=== PATIENT | female | born 1950 | race Two or more races ===

== ENCOUNTER 2019-09-23 14:24 | Emergency (ER) | payer MEDICARE ==
[~2019-09-23] VITALS: Ht 144.8 cm; Wt 64.4 kg
--- OUTSIDE RECORDS SUMMARY | 2019-09-23 14:26 | XMS REPORT | Summary of Care ---
Author Author [facility] Organization [facility] Address Unknown Phone Unavailable Care Team Providers Care Ms Sql Dba Name Role Phone Valentin Mccoy MD PCP Reason for Referral * Radiology Services (Routine) Referred By Contact Referred To Contact Status Reason Specialty Diagnoses / Procedures Norma Cox RN [facility] Mammo Imaging [address] [facility] [address] [place] [address] Pending Radiology Diagnoses Visit for screening mammogram P rocedures MAMMO SCREENING BILATERAL Reason for Visit * Reason Comments Annual Wellness Visit Encounter Details Care Team Description Date Type Department Norma Cox RN Annual Wellness Visit 02/24/2019 Office Visit [facility] General Internal Medicine [address] 8[address]; [address] [place] [address] Allergies No Known Allergiesdocumented as of this encounter (statuses as of 02/24/2019) Medications End Date Status Medication Sig Dispensed Refills Start Date Active CALCIUM OR Take 250 mg 0 by mouth. Active atorvastatin (LIPITOR) 20 Take 1 Tab by 90 Tab 3 MG tabletIndications: mouth at 7 Mixed hyperlipidemia bedtime. Active omeprazole (PRILOSEC) 20 TAKE ONE 90 Cap 3 MG capsuleIndications: CAPSULE BY 7 Gastroesophageal reflux MOUTH EVERY disease without DAY esophagitis 02/24/2019 Discontinued meloxicam (MOBIC) 15 MG Take 1 Tab by 30 Tab 10 tabletIndications: mouth daily 6 Bilateral low back pain as needed for without sciatica Pain. 02/24/2019 Discontinued ciprofloxacin (CIPRO) 500 Take 1 Tab by 20 Tab 0 MG tabletIndications: mouth two 6 Travel advice encounter times daily. 02/24/2019 Discontinued ibandronate (BONIVA) 150 TAKE 1 TABLET 3 Tab 2 MG tablet BY MOUTH 7 EVERY MONTH 02/24/2019 Discontinued Na Sulfate-K Sulfate-Mg Take as 2 Bottle 1 Sulf (SUPREP BOWEL PREP directed 7 KIT) 17.5-3.13-1.6 GM/180ML SOLNIndications: Preventative health care, Screen for colon cancer documented as of this encounter (statuses as of 02/24/2019) Active Problems Problem Noted Date Incipient cataract 10/23/2013 Osteoporosis 05/07/2012 Other and unspecified hyperlipidemia 12/12/2010 GERD (gastroesophageal reflux disease) 12/12/2010 documented as of this encounter (statuses as of 02/24/2019) Immunizations Name Administration Dates Next Due Hepatitis B 08/30/2015, 04/12/2015 Influenza (Preservative 04/10/2013 Free) Influenza Intradermal 05/15/2016 Influenza Quad-PF 04/12/2015 Pneumococcal 05/22/2013 Polysaccharide Tdap 11/02/2014 Zoster Live 04/10/2013 documented as of this encounter Social History Date Tobacco Use Types Packs/Day Years Used Never Smoker Smokeless Tobacco: Never Used Drinks/Week oz/Week Comments Alcohol Use occasionally Yes Alcohol Habits Answer Date Recorded How often do you have a drink containing alcohol? Monthly or less 02/24/2019 How many drinks containing alcohol do you have on 1 or 2 02/24/2019 a typical day when you are drinking? How often do you have six or more drinks on one Never 02/24/2019 occasion? Physical Activity Answer Date Recorded On average, how many days per week do you engage 7 days 02/24/2019 in moderate to strenuous exercise (like walking fast, running, jogging, dancing, swimming, biking, or other activities that cause a light or heavy sweat)? On average, how many minutes do you engage in 40 min 02/24/2019 exercise at this level? Sex Assigned at Date Recorded Not on file Industry Job Start Date Occupation Not on file Not on file Not on file Travel End Travel History Travel Start No recent travel history available. documented as of this encounter Last Filed Vital Signs Reading Time Taken Comments Vital Sign 130/76 02/24/2019 9:49 AM CDT Blood Pressure 77 02/24/2019 9:49 AM CDT Pulse 36.7 C (98.1 F) 02/24/2019 9:49 AM CDT Temperature 16 02/24/2019 9:49 AM CDT Respiratory Rate - - Oxygen Saturation - - Inhaled Oxygen Concentration 67.6 kg (149 lb) 02/24/2019 9:49 AM CDT Weight 142.2 cm (4' 8") 02/24/2019 9:49 AM CDT Height 33.41 02/24/2019 9:49 AM CDT Body Mass Index documented in this encounter Patient Instructions * Patient Instructions* Norma Cox, LIZA - 02/24/2019 9:16 AM CDT Medicare Annual Wellness Summary and Schedule of Screening Diet, Nutrition and Weight The Body Mass Index is a ratio between your weight and height. Body mass index is 33.41 kg/m. BMI Ranges 23 to 29.99 Normal Over 30 Obese We will continue to help you get to or maintain a healthy weight by following a balanced diet. In general, we recommend the DASH diet and we can refer you our d ietician for guidance and funeral counselor on weight loss with a good diet exercise that is appropriate for you. Health Maintenance and Screening Test schedule Health Maintenance Topic Date Due HEPATITIS C SCREENING 10/17/1969 PREVNAR >=65 (PCV13) 10/17/2016 PNEUMOVAX >=65 (PPSV23) 10/17/2016 MAMMOGRAM ANNUAL 06/20/2018 FLU VACCINE > 6 MONTHS 02/12/2019 BMI FOLLOW UP PLAN 02/25/2020 MEDICARE AWV 02/25/2020 FALL SCREEN 02/25/2020 COLON CANCER SCREENING: COLONOSCOPY 05/26/2022 TETANUS SHOT (ADULT) 11/02/2024 OSTEOPOROSIS SCREENING Completed Colonoscopies are done until you're 75 years old; your next colonoscopy due date is shown above if applicable. Mammogram can be done until you're 75 years old every one to two years; your nex t mammogram due date is shown above if applicable. Please call the [facility] to make your appointment. [facility]; [address] [place] [address], [address]; [place] [address] Bone Density tests can be done every 1-2 years depending on the results of your previous test. Bone density orders have been created and entered into the system. Walk-ins are accepted for bone density testings at [facility] on the or of [facility] [address]; Their hours are from 7am-5pm. If you do not have a medical condition that requires regular cholesterol monitor ing, cholesterol screening should be done at least every 5 years. Your next cholesterol labs is due per recommendations Results for orders placed or performed in visit on 05/28/17 LIPID PANEL Result Value Ref Range CHOLESTEROL 177 <200 MG/DL TRIGLYCERIDES 239 (H) <150 MG/DL HDL CHOLESTEROL 44 >39 MG/DL LDL CHOLESTEROL CALCULATED 85 <100 MG/DL LDL/HDL RATIO, SERUM 1.94 <3.22 RATIO If you do not have a medical condition that requires regular blood sugars monito ring, blood sugars screening should be done at least every 3 years. Your next blood sugars labs is due per MD recommendations Lab Results Component Value Date GLUCOSE 89 05/28/2017 Your Body mass index is 33.41 kg/m. Body mass index (BMI) can help you see if your weight is raising your risk for h ealth problems. It uses a formula to compare how much you weigh with how tall yo u are. A BMI between 18.5 and 24.9 is considered healthy. A BMI between 25 and 2 9.9 is considered overweight. A BMI of 30 or higher is considered obese. If your BMI is in the normal range, it means that you have a lower risk for weig ht-related health problems. If your BMI is in the overweight or obese range, you may be at increased risk for weight-related health problems, such as high blood pressure, heart disease, stroke, arthritis or joint pain, and diabetes. BMI is just one measure of your risk for weight-related health problems. You may be at higher risk for health problems if you are not active, you eat an unhealt hy diet, or you drink too much alcohol or use tobacco products. Follow-up care is a butcher part of your treatment and safety. Be sure to make and g o to all appointments, and call your doctor if you are having problems. It's als o a good idea to know your test results and keep a list of the medicines you kev e. How can you care for yourself at home? Practice healthy eating habits. This includes eating plenty of fruits, vegeta bles, whole grains, lean protein, and low-fat dairy. Get at least 30 minutes of exercise 5 days a week or more. Brisk walking is a good choice. You also may want to do other activities, such as running, swimmin g, cycling, or playing tennis or team sports. Do not smoke. Smoking can increase your risk for health problems. If you need help quitting, talk to your doctor about stop-smoking programs and medicines. T hese can increase your chances of quitting for good. Limit alcohol Where can you learn more? Go to www.ideaForge.[facility] southern arizonaCretia's Creations Go to the Search tab with the magnifying glass on the right side of Trendrating home page. Enter S176 in the search box to learn more about "Body Mass Index: Care Instruct ions." Adult Immunization schedule Influenza Vaccine: recommended every year Zostavax Shingles vaccines: recommended once after the age of 60 *OR* Shingrix Shingles vaccine: recommended after the age of 50 (two injections given at least 2 months apart) Pneumovax and Prevnar: recommended once after the age of 65 and are given one ye ar apart. Immunization History Administered Date(s) Administered Hepatitis B 04/12/2015, 08/30/2015 Influenza (Preservative Free) 04/10/2013 Influenza Intradermal 05/15/2016 Influenza Quad-PF 04/12/2015 Pneumococcal Polysaccharide 05/22/2013 Tdap 11/02/2014 Zoster Live 04/10/2013 Patient Safety You received a patient safety brochure with your questionnaire and if you need a new copy, we will provide it for you. We aim to help prevent falls in our patie nts; please return to [facility] Medicine clinic if you experience a fall any time before your next Medicare Annual Wellness Visit. [facility] Services website for simple Advance Directive forms ("Jennifer ing Will") and Medical Power of Welder [employer] https://hhs.[place].gov/laws-regulations/forms/advance-directives Direct link to the living will form: https://[facility].[place].gov/sites/default/files//documents/laws-regulations/forms/Denise ngWialexis/LivingWill.pdf Direct link to the Medical Power of Welder Manufacture form: https://[facility].[place].gov/sites/default/files//documents/laws-regulations/forms/MPOA /MPOA.pdf The above links are confirmed as of 3/12/18 Depression, Confidence with Self-management [facility]:[phone] http://www.cdc.gov/aging/mentalhealth/depression.htm Pain [facility] [phone] Physical Activity Living Health Guide Xc7ceuy www.daysi.nih.gov/ym9Sfpk Falls and Gait Physical Therapy: Various locations http://www.cdc. gov/HomeandRecreationalSafety/Falls/adultfalls.html Smoking www.ConX[employer].net/[place] https://www.cdc.gov/tobacco/quit_smoking/how_to_quit/index.htm Alcohol [facility]: [phone] http://www.cdc.gov/alcohol/ Home Safety www.[facility].gov/health/aging Motor Vehicle Safety http://www.cdc.gov/Motorvehiclesafety/Older_Adult_Drivers/i ndex.html Cognition [facility] [phone] http://www.cdc.gov/aging/aginginfo/alzheimers.htm Hearing [facility] [phone] https://www.nidcd.nih.gov/health/rexyxeo-nufh-hdiew-adults Vision [facility] [phone] http://www.[facility].gov/features/healthyvision/index.html BMI [facility] [phone] https://www.daysi.nih.gov/health/publication/wmhtkao-hoihgp-bnxlw-50https://www. daysi.nih.gov/health/publication/rohwc-hgdb-mfzgr/ Have a healthy year! Norma Cox RN Learning About Dietary Guidelines What are the Dietary Guidelines for Americans? Dietary Guidelines for Americans provide tips for eating well and staying health y. This helps reduce the risk for long-term (chronic) diseases. These adult guidelines from the [place] government recommend that you: ? Eat lots of fruits, vegetables, whole grains, and low-fat or nonfat dairy prod ucts. ? Try to balance your eating with your activity. This helps you stay at a health y weight. ? Drink alcohol in moderation, if at all. ? Limit foods high in salt, saturated fat, trans fat, and added sugar. What is MyPlate? MyPlate is the U.S. government's food guide. It can help you make your own well- balanced eating plan. A balanced eating plan means that you eat enough, but not too much, and that your food gives you the nutrients you need to stay healthy. MyPlate focuses on eating plenty of whole grains, fruits, and vegetables, and on limiting fat and sugar. It is available online at www.ChooseMyPlate.gov. How can you get started? MyPlate suggests that most adults eat certain amounts from the different food gr oups: Grains Eat 5 to 8 ounces of grains each day. Half of those should be whole grains. Jasmin se whole-grain breads, cold and cooked cereals and grains, pasta (without creamy sauces), hard rolls, or low-fat or fat-free crackers. Vegetables Eat 2 to 3 cups of vegetables every day. They contain little if any fat. And the y have lots of nutrients that help protect against heart disease. Fruits Eat 1 to 2 cups of fruits every day. Fruits contain very little fat but lots o f nutrients. Protein foods Most adults need 5 to 6 ounces each day. Choose fish and lean poultry more oft en. Eat red meat and fried meats less often. Dried beans, tofu, and nuts are als o good sources of protein. Dairy Most adults need 3 cups of milk and milk products a day. Choose low-fat or fat-f ree products from this food group. If you have problems digesting milk, try eati ng cheese or yogurt instead. Limit fats and oils, including those used in cooking. When you do use fats, jasmin se oils that are liquid at room temperature (unsaturated fats). These include ca broderick oil and olive oil. Avoid foods with trans fats, such as many fried foods, c ookies, and snack foods. Where can you learn more? Go to ideaForge.Performance [employer]icator and Enter D676 in the search box to learn more ab out "Learning About Dietary Guidelines." A visit with a licensed registered dietitian can provide a wealth of helpful inf ormation. Ask your doctor to place a referral or call [phone] for more inf ormation. 0429-0919 [employer]. Care instructions adapted under license b y [facility]. This care instruction is for use with your license d healthcare professional. If you have questions about a medical condition or th is instruction, always ask your healthcare professional. [employer] d disclaims any warranty or liability for your use of this information. Content Version: 11.0.975102; Current as of: August 19, 2015 Your There is no height or weight on file to calculate BMI. Body mass index (BMI) can help you see if your weight is raising your risk for h ealth problems. It uses a formula to compare how much you weigh with how tall yo u are. A BMI between 18.5 and 24.9 is considered healthy. A BMI between 25 and 2 9.9 is considered overweight. A BMI of 30 or higher is considered obese. If your BMI is in the normal range, it means that you have a lower risk for weig ht-related health problems. If your BMI is in the overweight or obese range, you may be at increased risk for weight-related health problems, such as high blood pressure, heart disease, stroke, arthritis or joint pain, and diabetes. BMI is just one measure of your risk for weight-related health problems. You may be at higher risk for health problems if you are not active, you eat an unhealt hy diet, or you drink too much alcohol or use tobacco products. Follow-up care is a butcher part of your treatment and safety. Be sure to make and g o to all appointments, and call your doctor if you are having problems. It's als o a good idea to know your test results and keep a list of the medicines you kev e. How can you care for yourself at home? Practice healthy eating habits. This includes eating plenty of fruits, vegeta bles, whole grains, lean protein, and low-fat dairy. Get at least 30 minutes of exercise 5 days a week or more. Brisk walking is a good choice. You also may want to do other activities, such as running, swimmin g, cycling, or playing tennis or team sports. Do not smoke. Smoking can increase your risk for health problems. If you need help quitting, talk to your doctor about stop-smoking programs and medicines. T hese can increase your chances of quitting for good. Limit alcohol Where can you learn more? Go to www.ideaForge.[facility] arizonaMileIQ.Zong Go to the Search tab with the magnifying glass on the right side of Trendrating home page. Enter S176 in the search box to learn more about "Body Mass Index: Care Instruct ions." [facility] Hepatitis C Virus Tests: About These Tests What are they? Hepatitis C virus tests are blood tests that check for substances in the blood t hat show whether you have hepatitis C now or had it in the past. The tests can a lso tell you what type of hepatitis C you have and how severe the disease is. Why are these tests done? You may need these tests if: You have symptoms of hepatitis. You may have been exposed to the virus. You are more likely to have been expo sed to the virus if you inject drugs or are exposed to body fluids (such as if y won are a health care worker). You have had other tests that show you have liver problems. You were born between 1945 and 1965. People in this age group are more likely to have hepatitis C and not know it. You have HIV infection. The tests also are done to help your doctor decide about your treatment and see how well it works. How can you prepare for these tests? You do not need to do anything before you have these tests. What happens during these tests? A health professional takes a sample of your blood. What else should you know about these tests? The tests can tell your doctor what type of hepatitis C you have and how karyn re it is. This can help your doctor determine treatment and see how effective it is. If you have the tests soon after you were infected with hepatitis C, they may show that you do not have the disease even when you have it. This is because the substances that show you have hepatitis C can take weeks or months to develop, so they may not be in your blood yet. Your doctor may want you to be tested aga in. If the tests show you have long-term hepatitis C, you need to take steps to p revent spreading the disease. What happens after these tests? You will probably be able to go home right away. You can go back to your usual activities right away. When should you call for help? Watch closely for changes in your health, and be sure to contact your doctor if you have any problems. Follow-up care is a butcher part of your treatment and safety. Be sure to make and g o to all appointments, and call your doctor if you are having problems. It's als o a good idea to keep a list of the medicines you take. Ask your doctor when you can expect to have your test results. Where can you learn more? Go to ideaForge.[facility]/Trendrating/ Click on the magnifying glass tab, and enter W551 in the search box to learn gina french about "Hepatitis C Virus Tests: About These Tests." Current as of: June 01, 2017 Content Version: 11.7 7656-8526 [employer]. Care instructions adapted under license b y [facility]. If you have questions about a medical condition or this instruction, always ask your healthcare professional. [employer] ated[employer]id disclaims any warranty or liability for your use of this information. documented in this encounter Progress Notes * Norma Cox RN - 02/24/2019 9:57 AM CDT Medicare Annual Wellness Visit Health Risk Assessment Intake [facility] Nallely Lombardi Bev: 68 y.o. female Updated on 02/24/2019 by Norma Cox RN Health Maintenance Last Eye Exam: 2017 Corrective lenses glasses Brief Disability Manager Score 3 pt denies any hearing difficulty no hearing aids Pt declines referral to ENT Scorin or more points is a positive score indicating further evaluation Lifestyle Choices Exercise Type: walk Frequency per week: 7 Duration: 45 minutes Smoking Usage Social History Tobacco Use Smoking Status Never Smoker Smokeless Tobacco Never Used Ready to Quit Smoking/Smokeless tobacco? n/a Alcohol Screening (AUDIT 1-3 US Score) How often do you have a drink containing alcohol? 2 - Monthly How many standard drinks of alcohol do you have on a typical day you are drinkin g? 0 - 1 drink How often do you have 4/5 or more drinks on ONE occasion? 0 - Never AUDIT 1-3 US Score: 2 Depression Depression Screenig 06/12/2017 02/24/2019 Does the patient consent to screening? Yes Yes Little interest or pleasure in doing things 0 0 Feeling down, depressed, or hopeless 0 0 Scoring: If PHQ-2 is positive, complete PHQ-9 form and enter in to Epic Pain Scale: 0/5 Accidents, Trauma & Domestic Abuse Helmets with biking/skating n/a Smoke detectors: YES Handguns: NO Seatbelts: YES Drink and drive: NO NO Have you been hit, kicked, punched, or otherwise hurt by someone in the past year? NO Do you feel unsafe in your current relationship? NO Is there a partner from a past relationship who is making you feel unsafe no w? Mini-Cog Score from handout 3 Scorin-2: Positive screen for dementia; 3-5: Negative screen for dementia Memory & Cognitive Assessment, Social Assistance and Activities of Daily Living (ADLs), Loneliness Have you noticed any changes in your (or in your parents) memory recently? NO Are you (or is your parent) less well organized than in the past? NO During the past 4 weeks, how would you (or your family) rate your health in [facility]? Excellent=0 During the past 4 weeks, how have things been going for you? Excellent=0 During the past 4 weeks, was someone available to help you if you needed and wan sobia help? Yes, as much as I wanted Is the patient independent for: Eating: Yes Bathing: Yes Dressing: Yes Ambulation: Yes Toileting: Yes Can the patient perform the following alone? Prepares own meals: Yes Uses telephone: Yes Does housework: Yes Handles own money: Yes Takes own medications: Yes Shops for groceries: Yes Travels: Yes Does laundry: Yes Incontinence Concerns NO Risk of Falling Score 0 Scorin points or more, is a positive score indicating risk for falling. Check for Safety Brochure Review Questions about Check for Safety Brochure reviewed with pt? YES Advance Directives Do you have a Living Will? NO Have you designated a Medical Power of Welder Manufacture? NO Care Team Providers, DME and Home Health Agency I have updated the following list of providers and suppliers as disclosed by the patient Care Team as of 02/24/2019 N/A: Norma Cox RN, (Phone number not found) I have reviewed the Health Risk Assessment (HRA) form completed by Ms. Pablo/john paul r caregiver and all [employer] documentation. Positive results are as follows: Nallely was seen today for annual wellness visit. Diagnoses and all orders for this visit: Medicare annual wellness visit, subsequent Increased BMI (body mass index) Need for hepatitis C screening test - HEPATITIS C ANTIBODY Visit for screening mammogram - MAMMO SCREENING BILATERAL; Future Health Summary - I have updated the following list of medical conditions, family history, surgeri es, allergies and medications as disclosed by the patient Family History Problem Relation Name Age of Onset Cancer Father metastatic from ent cancer No Known Problems Mother Diabetes Sister Breast Cancer Daughter No Known Problems Brother No Known Problems Sister No Known Problems Sister Past Surgical History: Procedure Laterality Date HX COLONOSCOPY 2011 1 polyp - colonic mucosa HX UPPER GASTROINTESTINAL ENDOSCOPY 2012 gastritis and h pylori No Known Allergies atorvastatin (LIPITOR) 20 MG tablet Take 1 Tab by mouth at bedtime. CALCIUM OR Take 250 mg by mouth. omeprazole (PRILOSEC) 20 MG capsule TAKE ONE CAPSULE BY MOUTH EVERY DAY Medications, vitamins and supplements, both prescribed and [id number] are listed above as reviewed with Ms. Pablo Cancer Screening - Health Maintenance Topic Date Due HEPATITIS C SCREENING 10/17/1969 PREVNAR >=65 (PCV13) 10/17/2016 PNEUMOVAX >=65 (PPSV23) 10/17/2016 MAMMOGRAM ANNUAL 06/20/2018 FLU VACCINE > 6 MONTHS 02/12/2019 BMI FOLLOW UP PLAN 02/25/2020 MEDICARE AWV 02/25/2020 FALL SCREEN 02/25/2020 COLON CANCER SCREENING: COLONOSCOPY 05/26/2022 TETANUS SHOT (ADULT) 11/02/2024 OSTEOPOROSIS SCREENING Completed Colon: Abnormal Colonoscopy: NO Skin: Changing moles? NO Use sunscreen? YES Women: Breast Hx of Abnormal Mammos NO Cervical Hx of Abnormal Paps NO Other Preventive Measures - Osteoporosis Last Dexa Date Per Health Maintenance AAA Screen U/S N/A Patients with family h/o AAA or men with b/n 65-75yo with h/o smoking at least 1 00 cigarettes in their lifetime Social History Tobacco Use Smoking Status Never Smoker Smokeless Tobacco Never Used Immunizations - Immunization History Administered Date(s) Administered Hepatitis B 04/12/2015, 08/30/2015 Influenza (Preservative Free) 04/10/2013 Influenza Intradermal 05/15/2016 Influenza Quad-PF 04/12/2015 Pneumococcal Polysaccharide 05/22/2013 Tdap 11/02/2014 Zoster Live 04/10/2013 Shingrix Due Zostavax Done Pneumovax (PPS23) Due per Health Maintenance Prevnar (PCV13) Done Cardiovascular disease - Weight bearing exercise Per HRA Blood pressure BP Readings from Last 3 Encounters: 02/24/19 130/76 05/28/17 118/80 05/15/16 118/72 Lipids Lab Results Component Value Date CHOL 177 05/28/2017 LDLCALC 85 05/28/2017 Glucose Lab Results Component Value Date HGBA1C 5.7 (H) 05/28/2017 Lab Results Component Value Date GLUCOSE 89 05/28/2017 Infectious disease screening -ordered this visit Hep C screening No results found for: HEPCAB BP 130/76 | Pulse 77 | Temp 98.1 F (36.7 C) | Resp 16 | Ht 4' 8" (1.422 m) | Wt 149 lb (67.6 kg) | BMI 33.41 kg/m Appearance: female, in no acute distress Mood and Affect: Appropriate, Normal documented in this encounter Plan of Treatment Care Team Description Date Type Specialty Valentin Mccoy Jr., MD [address] [place] [id number] Arrived 02/24/2019 Office Visit General Internal Medicine Order Schedule Name Type Priority Associated Diagnoses Ordered: 02/24/2019 HEPATITIS C ANTIBODY Lab Routine Need for hepatitis C screening test Expected: 02/24/2019, Expires: 08/27/2020 MAMMO SCREENING BILATERAL Imaging Routine Visit for screening mammogram Health Maintenance Due Date Last Done Comments HEPATITIS C SCREENING 10/17/1969 PNEUMOVAX >=65 (PPSV23) 10/17/2016 05/22/2013 PREVNAR >=65 (PCV13) 10/17/2016 MAMMOGRAM ANNUAL 06/20/2018 06/20/2017, 05/31/2017, 05/15/2016, Additional history exists FLU VACCINE > 6 MONTHS 02/12/2019 05/28/2017 (Declined), 05/15/2016, 04/12/2015, Additional history exists BMI FOLLOW UP PLAN 02/25/2020 02/24/2019, 05/28/2017 FALL SCREEN 02/25/2020 02/24/2019, 02/24/2019 MEDICARE AWV 02/25/2020 02/24/2019, 05/28/2017 COLON CANCER SCREENIN05/26/2022 05/26/2012 COLONOSCOPY TETANUS SHOT (ADULT) 11/02/2024 11/02/2014 OSTEOPOROSIS SCREENING Completed 05/28/2017, 05/15/2016, 08/30/2015, Additional history exists documented as of this encounter Results Not on filedocumented in this encounter Visit Diagnoses Diagnosis Medicare annual wellness visit, subsequent - Primary Routine general medical examination at a health care facility Increased BMI (body mass index) Need for hepatitis C screening test Special screening examination for other specified viral diseases Visit for screening mammogram Other screening mammogram documented in this encounter Insurance Type Payer Benefit Subscriber ID Effective Phone Address Plan / Dates Group Medicare MEDICARE MEDICARE xxxxxxxxxxx Effective [address] for all [id number] [place] [address] Medicare LIFE INSURANCE MEDICARE xxxxxxxx Effective [phone] Health SUPPLEMENT for all Claims dates [address] [address] [place] [address] documented as of this encounter
--- OUTSIDE RECORDS SUMMARY | 2019-09-23 14:26 | XMS REPORT | Summary of Care ---
Author Author [facility] Organization [facility] Address Unknown Phone Unavailable Care Team Providers Care Drapery Head Former Name Role Phone Valentin Mccoy MD PCP Reason for Referral * Treatment (Routine) Referred By Contact Referred To Contact Status Reason Specialty Diagnoses / Procedures Margarette Tracy MD [address] [place] [id number] [facility] [address] [place] [phone] Pending Gastroenterology Diagnoses Screen for colon cancer P rocedures COLONOSCOPY W MAC GI DEPT [place] COLONOSCOPY W/BIOPSY SINGLE/MULTIPLE * Treatment (Routine) Referred By Contact Referred To Contact Status Reason Specialty Diagnoses / Procedures Margarette Tracy MD [address] [place] [id number] [facility] [address] [place] [phone] Pending Gastroenterology Diagnoses Gastroesophageal reflux disease without esophagitis Epigastric abdominal pain P rocedures EGD W/MAC - GI DEPT [place] EGD TRANSORAL BIOPSY SINGLE/MULTIPLE Reason for Visit * Reason Comments Initial Visit Gastrophageal Reflux * Consult, Test & Treat (Routine) Referred By Contact Referred To Contact Status Reason Specialty Diagnoses / Procedures Valentin Mccoy Jr., MD [address] [place] [phone] Margarette Tracy MD [address] [place] [address] [address] [place] [address] Authorization Consult, Test, and Gastroenterology Diagnoses Not Needed Treat Gastroesophageal reflux disease without esophagitis Gastroesophageal reflux disease without esophagitis [K21.9] P rocedures [facility] OFFICE OUTPATIENT NEW 30 MINUTES Encounter Details Care Team Description Date Type Department Margarette Tracy MD [address] [place] [address] Initial Visit; Gastrophageal Reflux 05/04/2019 Office Visit [facility] [address], [address] [place] [address] Allergies No Known Allergiesdocumented as of this encounter (statuses as of 05/04/2019) Medications End Date Status Medication Sig Dispensed Refills Start Date Active CALCIUM OR Take 250 mg 0 by mouth. Active atorvastatin (LIPITOR) 20 Take 1 Tab by 90 Tab 3 MG tabletIndications: mouth at 9 Mixed hyperlipidemia bedtime. Active Zoster Vac Recomb IM: 0.5 mL 2 Each 0 Adjuvanted 50 MCG/0.5ML administered 9 SUSRIndications: Need for as a 2-dose shingles vaccine series at 0 and 2 to 6 months Active omeprazole (PRILOSEC) 20 Take 1 Cap by 90 Cap 4 MG capsuleIndications: mouth daily. 9 Gastroesophageal reflux disease without esophagitis, Epigastric abdominal pain Active Na Sulfate-K Sulfate-Mg [SUPREP] Take 1 Bottle 0 Sulf (SUPREP BOWEL PREP as directed. 9 KIT) 17.5-3.13-1.6 GM/177ML SOLNIndications: Screen for colon cancer 05/04/2019 Discontinued omeprazole (PRILOSEC) 20 TAKE ONE 90 Cap 3 MG capsuleIndications: CAPSULE BY 9 Gastroesophageal reflux MOUTH EVERY disease without DAY esophagitis documented as of this encounter (statuses as of 05/04/2019) Active Problems Problem Noted Date Incipient cataract 10/23/2013 Osteoporosis 05/07/2012 Other and unspecified hyperlipidemia 12/12/2010 GERD (gastroesophageal reflux disease) 12/12/2010 documented as of this encounter (statuses as of 05/04/2019) Immunizations Name Administration Dates Next Due Hepatitis B 08/30/2015, 04/12/2015 Influenza (Preservative 04/10/2013 Free) Influenza Intradermal 05/15/2016 Influenza Quad-PF 04/12/2015 Pneumococcal 13-valent 02/24/2019 Conjugate Vaccine Pneumococcal 05/22/2013 Polysaccharide Tdap 11/02/2014 Zoster Live [...] Signs Reading Time Taken Comments Vital Sign - - Blood Pressure 74 05/04/2019 4:01 PM CDT Pulse 36.7 C (98.1 F) 05/04/2019 4:01 PM CDT Temperature 16 05/04/2019 4:01 PM CDT Respiratory Rate - - Oxygen Saturation - - Inhaled Oxygen Concentration 64.4 kg (142 lb) 05/04/2019 4:01 PM CDT Weight 142.2 cm (4' 8") 05/04/2019 4:01 PM CDT Height 31.84 05/04/2019 4:01 PM CDT Body Mass Index documented in this encounter Progress Notes * Margarette Tracy MD - 05/04/2019 4:00 PM CDT History of Present Illness: Nallely Pablo is a 68 y.o. female who presents for further evaluation of reflux and personal history of colon polyps Patient has reflux symptoms that are controlled on PPI therapy. Did not have con trol on h2 blockers The patient has a personal history of polyps and is due for colonoscopy. There is no odynophagia, dysphagia There is no emesis, hematemesis There is no weight loss. There is no melena, hematochezia Review of Systems: Constitutional: does not endorse current fever, does not endorse recent trauma Eyes: does not endorse current visual changes, does not endorse current double v ision ENT: does not endorse ear pain, does not endorse tinnitus Cardiovascular: does not endorse chest pain Respiratory: denies cough, denies shortness of breath Gastrointestinal: see HPI Genitourinary: does not endorse hematuria, does not endorse dysuria Musculoskeletal: does not endorse new muscle pain Hematological: does not endorse excessive/prolonged bleeding Neurological: does not endorse confusion Social History: Smoking: denies EtOH: denies Social History Tobacco Use Smoking status: Never Smoker Smokeless tobacco: Never Used Substance Use Topics Alcohol use: Yes Frequency: Monthly or less Drinks per session: 1 or 2 Binge frequency: Never Comment: occasionally Drug use: No Past Medical History: Past Medical History: Diagnosis Date Normocytic anemia Other and unspecified hyperlipidemia 12/12/2010 Past Surgical History: Past Surgical History: Procedure Laterality Date HX COLONOSCOPY 2011 1 polyp - colonic mucosa HX COLONOSCOPY 05/2012 HX ENDOSCOPY 04/2013 HX UPPER GASTROINTESTINAL ENDOSCOPY 2012 gastritis and h pylori Family History: There is no family history of GI malignancy. There is no family history of inflammatory bowel disease. Physical Exam: Vital Signs Height: 4' 8" (142.2 cm) Weight - Scale: 142 lb (64.4 kg) Temp: 98.1 F (36.7 C) Temp Source: Oral Pulse: 74 Respirations: 16 Body mass index is 31.84 kg/m. General: No apparent distress Neuro: alert, responsive, oriented to self Head: Normocephalic and atraumatic EENT: PERRL, EOMI Neck: Supple, no masses appreciated CV: RRR, PMI is nondisplaced Lung: no labored breathing, grossly CTAB Extremities: no edema, no clubbing Abdomen: soft tender, not distended +BS Assessment and Plan: () GERD -because of symptom duration and age will need EGD for evaluation of erosive eso phagitis, Vargas's esophagus, eosinophilic esophagitis, structural issues such as hiatal hernia -controlled on omeprazole 20mg daily, failed H2 ross () history of gallstones -asymptomatic () Screen for colon cancer -counseled about risks/benefits of colonoscopy as a modality for assessing/preve nting colon cancer and the patient agrees to pursue this () Thank you for allowing me to part of this patients medical care. I have revie wed the above with the patient who expresses understanding. If there are any que stions, please do not hesitate to contact me. documented in this encounter Plan of Treatment Order Schedule Name Type Priority Associated Diagnoses 1 Occurrences starting 05/04/2019 until 11/03/2019 EGD W/MAC - GI DEPT Procedures Routine Gastroesophageal reflux disease without esophagitis Epigastric abdominal pain 1 Occurrences starting 05/04/2019 until 11/03/2019 COLONOSCOPY W MAC GI Procedures Routine Screen for colon cancer DEPT Health Maintenance Due Date Last Done Comments HEPATITIS C SCREENING 10/17/1969 PNEUMOVAX >=65 (PPSV23) 10/17/2016 05/22/2013 FLU VACCINE > 6 MONTHS 02/12/2019 05/28/2017 (Declined), 05/15/2016, 04/12/2015, Additional history exists BMI FOLLOW UP PLAN 02/25/2020 02/24/2019, 02/24/2019, 05/28/2017 FALL SCREEN 02/25/2020 02/24/2019, 02/24/2019 MEDICARE AWV 02/25/2020 02/24/2019, 02/24/2019, 05/28/2017 MAMMOGRAM ANNUAL 04/28/2020 04/28/2019, 06/20/2017, 05/31/2017, Additional history exists COLON CANCER SCREENIN05/26/2022 05/26/2012 COLONOSCOPY TETANUS SHOT (ADULT) 11/02/2024 11/02/2014 OSTEOPOROSIS SCREENING Completed 05/28/2017, 05/15/2016, 08/30/2015, Additional history exists PREVNAR >=65 (PCV13) Completed 02/24/2019 documented as of this encounter Results Not on filedocumented in this encounter Visit Diagnoses Diagnosis Epigastric abdominal pain - Primary Abdominal pain, epigastric Gastroesophageal reflux disease without esophagitis Esophageal reflux Screen for colon cancer Special screening for malignant neoplasms, colon documented in this encounter Insurance Type Payer Benefit Subscriber ID Effective Phone Address Plan / Dates Group Medicare MEDICARE MEDICARE xxxxxxxxxxx Effective [address] for all [id number] [place] [address] Medicare LIFE INSURANCE MEDICARE xxxxxxxx Effective [phone] Health SUPPLEMENT for all Claims dates [address] [address] [place] [address] documented as of this encounter
--- OUTSIDE RECORDS SUMMARY | 2019-09-23 14:26 | XMS REPORT | Summary of Care ---
Author Author [facility] Organization [facility] Address Unknown Phone Unavailable Care Team Providers Care Filbert Grower Name Role Phone Valentin Mccoy MD PCP Reason for Referral * Consult, Test & Treat (Routine) Referred By Contact Referred To Contact Status Reason Specialty Diagnoses / Procedures Valentin Mccoy Jr., MD [address] [place] [phone] Margarette Tracy MD [address] [place] [phone] Pending Consult, Test, and Gastroenterology Diagnoses Treat Gastroesophageal reflux disease without esophagitis P rocedures [place] OFFICE OUTPATIENT NEW 30 MINUTES Reason for Visit * Reason Comments Refill Hyperlipidemia Encounter Details Care Team Description Date Type Department Valentin Mccoy Jr., MD [address] [place] [id number] [phone] Refill; Hyperlipidemia 02/24/2019 Office Visit [facility] General Internal Medicine [address] [place] [address] 8th Floor; [address] [place] [phone] Allergies No Known Allergiesdocumented as of this encounter (statuses as of 02/25/2019) Medications End Date Status Medication Sig Dispensed Refills Start Date Active CALCIUM OR Take 250 mg 0 by mouth. Active atorvastatin (LIPITOR) 20 Take 1 Tab by 90 Tab 3 MG tabletIndications: mouth at 9 Mixed hyperlipidemia bedtime. Active omeprazole (PRILOSEC) 20 TAKE ONE 90 Cap 3 MG capsuleIndications: CAPSULE BY 9 Gastroesophageal reflux MOUTH EVERY disease without DAY esophagitis Active Zoster Vac Recomb IM: 0.5 mL 2 Each 0 Adjuvanted 50 MCG/0.5ML administered 9 SUSRIndications: Need for as a 2-dose shingles vaccine series at 0 and 2 to 6 months 02/24/2019 Discontinued atorvastatin (LIPITOR) 20 Take 1 Tab by 90 Tab 3 MG tabletIndications: mouth at 7 Mixed hyperlipidemia bedtime. 02/24/2019 Discontinued omeprazole (PRILOSEC) 20 TAKE ONE 90 Cap 3 MG capsuleIndications: CAPSULE BY 7 Gastroesophageal reflux MOUTH EVERY disease without DAY esophagitis 02/24/2019 Discontinued metoprolol (TOPROL-XL) 25 0 MG XL tablet 9 documented as of this encounter (statuses as of 02/25/2019) Active Problems Problem Noted Date Incipient cataract 10/23/2013 Osteoporosis 05/07/2012 Other and unspecified hyperlipidemia 12/12/2010 GERD (gastroesophageal reflux disease) 12/12/2010 documented as of this encounter (statuses as of 02/25/2019) Immunizations Name Administration Dates Next Due Hepatitis [...] Time Taken Comments Vital Sign 130/76 02/24/2019 10:26 AM CDT Blood Pressure 77 02/24/2019 10:26 AM CDT Pulse 36.7 C (98.1 F) 02/24/2019 10:26 AM CDT Temperature 16 02/24/2019 10:26 AM CDT Respiratory Rate 99% 02/24/2019 10:26 AM CDT Oxygen Saturation - - Inhaled Oxygen Concentration 67.6 kg (149 lb) 02/24/2019 10:26 AM CDT Weight 142.2 cm (4' 8") 02/24/2019 10:26 AM CDT Height 33.41 02/24/2019 10:26 AM CDT Body Mass Index documented in this encounter Patient Instructions * Patient Instructions* Valentin Mccoy Jr., MD - 02/24/2019 4:00 PM CDT documented in this encounter Progress Notes * Valentin Mccoy Jr., MD - 02/24/2019 4:00 PM CDT History of Present Illness: HPI Mrs Pablo is a 68 yo who presents for follow up of HLD, HTN. Recently moved back to [place]. Reports they have been out of their medications. No previous issues with tolerance of previous therapies. No recent lab evaluations. Reports continued issues with reflux. Reports cannot go a day without the omepr azole. The patient's last endoscopies in 2011 and 2012. Denies melena or hematochezia. PMH: she reports that she has never smoked. She has never used smokeless tobacco. She reports that she drinks alcohol. She reports that she does not use drugs. Past Medical History: Diagnosis Date Normocytic anemia Other and unspecified hyperlipidemia 12/12/2010 Past Surgical History: Procedure Laterality Date HX COLONOSCOPY 2011 1 polyp - colonic mucosa HX UPPER GASTROINTESTINAL ENDOSCOPY 2012 gastritis and h pylori Family History Problem Relation Name Age of Onset Cancer Father metastatic from ent cancer No Known Problems Mother Diabetes Sister Breast Cancer Daughter No Known Problems Brother No Known Problems Sister No Known Problems Sister Medications: Current Outpatient Medications on File Prior to Visit Medication Sig Dispense Refill CALCIUM OR Take 250 mg by mouth. No current facility-administered medications on file prior to visit. Reviewed. Updated on medication reconciliation in [facility]. Allergies: No Known Allergies Social hx: Reviewed and updated in [facility]. Review of Systems: Review of Systems Constitutional: Negative for chills and fever. HENT: Negative for congestion, rhinorrhea and sneezing. Eyes: Negative for visual disturbance. Respiratory: Negative for cough, shortness of breath and wheezing. Cardiovascular: Negative for chest pain, palpitations and leg swelling. Gastrointestinal: Negative for constipation, diarrhea, nausea and vomiting. Endocrine: Negative for polydipsia and polyuria. Genitourinary: Negative for difficulty urinating and dysuria. Musculoskeletal: Negative for back pain and gait problem. Skin: Negative for pallor and rash. Psychiatric/Behavioral: Negative for dysphoric mood and sleep disturbance. Physical Exam: Vitals: 02/24/19 1026 BP: 130/76 Pulse: 77 Resp: 16 Temp: 98.1 F (36.7 C) SpO2: 99% Weight: 149 lb (67.6 kg) Height: 4' 8" (1.422 m) Physical Exam Constitutional: She is oriented to person, place, and time. She appears well-dev eloped and well-nourished. No distress. HENT: Mouth/Throat: Oropharynx is clear and moist. No oropharyngeal exudate. Eyes: Conjunctivae are normal. Neck: Neck supple. Cardiovascular: Normal rate, regular rhythm and normal heart sounds. Exam reveal s no friction rub. No murmur heard. Pulmonary/Chest: Effort normal and breath sounds normal. No stridor. No respirat ory distress. She has no wheezes. Abdominal: Soft. Bowel sounds are normal. She exhibits no distension. There is n o tenderness. There is no rebound. Musculoskeletal: She exhibits no edema. Neurological: She is alert and oriented to person, place, and time. Skin: Skin is warm and dry. She is not diaphoretic. Psychiatric: She has a normal mood and affect. Her behavior is normal. Vitals reviewed. Assessment and Plan: Nallely was seen today for refill and hyperlipidemia. Diagnoses and all orders for this visit: Essential hypertension - CBC W/AUTO DIFF WITH PLATELETS - COMPREHENSIVE METABOLIC PANEL - MICROALBUMIN/CREAT URINE RATIO Hyperlipidemia, unspecified hyperlipidemia type - LIPID PANEL IFG (impaired fasting glucose) - HEMOGLOBIN A1C Mixed hyperlipidemia - atorvastatin (LIPITOR) 20 MG tablet; Take 1 Tab by mouth at bedtime. Gastroesophageal reflux disease without esophagitis - omeprazole (PRILOSEC) 20 MG capsule; TAKE ONE CAPSULE BY MOUTH EVERY DAY - AMB REF TO GASTROENTEROLOGY [facility] Valentin Mccoy MD documented in this encounter Plan of Treatment Order Schedule Name Type Priority Associated Diagnoses Ordered: 02/24/2019 AMB REF TO Outpatient Routine Gastroesophageal reflux GASTROENTEROLOGY [facility] Referral disease without esophagitis Health Maintenance Due Date Last Done Comments HEPATITIS C SCREENING 10/17/1969 PNEUMOVAX >=65 (PPSV23) 10/17/2016 05/22/2013 MAMMOGRAM ANNUAL 06/20/2018 06/20/2017, 05/31/2017, 05/15/2016, Additional history exists FLU VACCINE > 6 MONTHS 02/12/2019 05/28/2017 (Declined), 05/15/2016, 04/12/2015, Additional history exists BMI FOLLOW UP PLAN 02/25/2020 02/24/2019, 02/24/2019, 05/28/2017 FALL SCREEN 02/25/2020 02/24/2019, 02/24/2019 MEDICARE AWV 02/25/2020 02/24/2019, 02/24/2019, 05/28/2017 COLON CANCER SCREENIN05/26/2022 05/26/2012 COLONOSCOPY TETANUS SHOT (ADULT) 11/02/2024 11/02/2014 OSTEOPOROSIS SCREENING Completed 05/28/2017, 05/15/2016, 08/30/2015, Additional history exists PREVNAR >=65 (PCV13) Completed 02/24/2019 documented as of this encounter Procedures Comments Procedure Name Priority Date/Time Associated Diagnosis HEPATITIS B SURFACE AB Routine 02/24/2019 Immunity status testing QUAL 11:08 AM CDT MICROALBUMIN/CREAT URINE Routine 02/24/2019 Essential hypertension RATIO 11:08 AM CDT CBC W/AUTO DIFF WITH Routine 02/24/2019 Essential hypertension PLATELETS 11:08 AM CDT HEMOGLOBIN A1C Routine 02/24/2019 IFG (impaired fasting 11:08 AM CDT glucose) LIPID PANEL Routine 02/24/2019 Hyperlipidemia, 11:08 AM CDT unspecified hyperlipidemia type COMPREHENSIVE METABOLIC Routine 02/24/2019 Essential hypertension PANEL 11:08 AM CDT documented in this encounter Results * HEPATITIS B SURFACE AB QUAL (02/24/2019 11:08 AM CDT) HEP BS ANTIBODY REACTIVE (A) NON-REACTIVE [facility] Comment: Unless Otherwise Indicated, All Testing Performed At: [facility], [address] [place] [id number] Heel Shaper: Twan Pearce M.D. CLIA Number [id number]. [id number] Specimen Performing Organization Address [facility] Phone Number [address] [address] * MICROALBUMIN/CREAT URINE RATIO (02/24/2019 11:08 AM CDT) Pathologist [facility] CREATININE 27.7 NOT ESTAB MG/DL [facility] Comment: Reference interval for random urine samples has not been established. MICROALBUMIN <0.2 MG/DL [facility] Comment: Note: Test name is changed to Urine Albumin from Microalbumin in accordance with ADA and NKF Guidelines, and Albumin/Creatinine ratio reference interval reflects those Guidelines.Analytic methodology is unchanged.No reference interval for Random Urine Albumin is available. CALC <7 <30 MG/G [facility] MICROALB/CREAT Comment: RAND Unless Otherwise Indicated, All Testing Performed At: [facility], [address] [place] [address] Heel Shaper: Twan Pearce M.D. CLIA Number [id number]. [id number] Specimen Urine Performing Organization Address [facility]/Zipcode Phone Number [address] [address] * LIPID PANEL (02/24/2019 11:08 AM CDT) CHOLESTEROL 170 <200 MG/DL [facility] TRIGLYCERIDES 252 (H) <150 MG/DL [facility] HDL CHOLESTEROL 51 >39 MG/DL [facility] LDL CHOLESTEROL 69 <100 MG/DL [facility] CALCULATED LDL/HDL RATIO, 1.35 <3.22 RATIO [facility] SER[facility] Comment: Unless Otherwise Indicated, All Testing Performed At: [facility], [address] [place] [address] Heel Shaper: Twan Pearce M.D. CLIA Number [id number]. [id number] Specimen Blood Performing Organization Address [facility] Phone Number [address] [address] * HEMOGLOBIN A1C (02/24/2019 11:08 AM CDT) HEMOGLOBIN A1C 5.9 (H) 4.2 - 5.6 % [facility] Comment: Unless Otherwise Indicated, All Testing Performed At: [facility], [address] [place] [address] Heel Shaper: Twan Pearce M.D. CLIA Number [id number] [place]. [id number] Specimen Blood Performing Organization Address [facility] Hospitalcomi Phone Number [address] [address] * COMPREHENSIVE METABOLIC PANEL (02/24/2019 11:08 AM CDT) GLUCOSE 92 70 - 99 MG/DL [facility] BLOOD UREA 12 8 - 23 MG/DL [facility] NITROGEN CREATININE 0.89 0.60 - 1.30 MG/DL [facility] EGFR AA 78 >60 ML/MIN/1.73 [facility] EGFR 67 >60 ML/MIN/1.73 [facility] BUN/CREAT RATIO 13 6 - 28 RATIO [facility] SODIUM 144 133 - 146 MEQ/L [facility] POTASSIUM 4.6 3.5 - 5.4 MEQ/L [facility] CHLORIDE 103 95 - 107 MEQ/L [facility] CO2 26 19 - 31 MEQ/L [facility] CALCIUM 10.3 8.5 - 10.5 MG/DL [facility] PROTEIN TOTAL 7.5 6.1 - 8.3 G/DL [facility] ALBUMIN 4.6 3.5 - 5.2 G/DL [facility] GLOBULINS, 2.9 1.9 - 3.7 G/DL [facility] SERUM, TOTAL A/G RATIO 1.6 1.0 - 2.6 RATIO [facility] BILIRUBIN TOTAL 0.3 <=1.2 MG/DL [facility] ALKALINE 77 40 - 142 U/L [facility] PHOSPHATASE AST (SGOT) 21 9 - 40 U/L [facility] ALT (SGPT) 17 5 - 40 U/L [facility] Comment: Unless Otherwise Indicated, All Testing Performed At: [facility], [address] [place] [address] Heel Shaper: Twan Pearce M.D. CLIA Number [id number] [place]. [id number] Specimen Blood Performing Organization Address [facility]code Phone Number [address] [address] * CBC W/AUTO DIFF WITH PLATELETS (02/24/2019 11:08 AM CDT) WHITE BLOOD 7.6 4.0 - 11.0 K/UL [facility] CELL COUNT RED BLOOD CELL 4.94 3.80 - 5.10 M/UL [facility] COUNT HEMOGLOBIN 13.2 11.5 - 15.5 G/DL [facility] HEMATOCRIT 40.6 34.0 - 45.0 % [facility] MEAN 82.2 80.0 - 100.0 fL [facility] CORPUSCULAR VOLUME MEAN 26.7 (L) 27.0 - 34.0 PG [facility] CORPUSCULAR HEMOGLOBIN MEAN 32.5 32.0 - 35.5 G/DL [facility] CORPUSCULAR HEMOGLOBIN CONC RED CELL 13.2 11.0 - 15.0 % [facility] DISTRIBUTION WIDTH NEUTROPHILS % 56.5 40.0 - 74.0 % [facility] LYMPHOCYTES % 33.6 19.0 - 48.0 % [facility]PL MONOCYTES % 5.1 4.0 - 13.0 % [facility] EOSINOPHILS % 4.1 0.0 - 7.0 % [facility] BASOPHILS % 0.7 0.0 - 2.0 % [facility] PLATELET COUNT 327 130 - 400 K/UL [facility] Comment: Unless Otherwise Indicated, All Testing Performed At: [facility], [address] [place] [address] Heel Shaper: Twan Pearce M.D. CLIA Number [id number]. [id number] Specimen Blood Performing Organization Address City/[facility] Hospitalcode Phone Number [address] [phone] documented in this encounter Visit Diagnoses Diagnosis Essential hypertension - Primary Unspecified essential hypertension Hyperlipidemia, unspecified hyperlipidemia type IFG (impaired fasting glucose) Impaired fasting glucose Mixed hyperlipidemia Gastroesophageal reflux disease without esophagitis Esophageal reflux Need for shingles vaccine Need for prophylactic vaccination and inoculation against varicella Need for pneumococcal vaccination Need for prophylactic vaccination against streptococcus pneumoniae (pneumococcus) Immunity status testing Antibody response examination documented in this encounter Insurance Type Payer Benefit Subscriber ID Effective Phone Address Plan / Dates Group Medicare MEDICARE MEDICARE xxxxxxxxxxx Effective [address] for all [id number] [place] [address] Medicare LIFE INSURANCE MEDICARE xxxxxxxx Effective [phone] Health SUPPLEMENT for all Claims dates [address] [address] [place] [address] documented as of this encounter
--- OUTSIDE RECORDS SUMMARY | 2019-09-23 14:26 | XMS REPORT ---
Author Author [facility] Address Unknown Phone Unavailable Care Team Providers Care Concrete Tile Machine Operator Name Role Phone Anastasiia GROSS Unavailable Unavailable Problems This patient has no known problems. Allergies, Adverse Reactions, Alerts This patient has no known allergies or adverse reactions. Medications This patient has no known medications. Results Test Description Test Time Test Comments Text Results Atomic Results Result Comments TISSUE EXAM 2019-05-28 08:09:00 Surgical Pathology Report Case: [id number] Authorizing Provider: Margarette Gross MD Collected: 05/26/2019 0953 Ord ering Location: [facility] ENDOSCOPY Received: 05/26/2019 1127 SERVICES Pathologist: Dora Coulter MD Specimens: A) - Biopsy, Gastric, random biopsy B) - Biopsy, Gastroesophageal Junction, biopsy C) - Polyp, Colon - Transverse, polyp taken with standrad forcep A. GASTRIC, RANDOM BIOPSY: - GASTRIC BODY TYPE MUCOSA WITH PARIETAL CELL HYPERPLASIA - GASTRIC ANTRUM TYPE MUCOSA WITH MILD REACTIVE GASTROPATHY - WARTHIN-STARRY STAIN NEGATIVE FOR H. PYLORI-LIKE ORGANISMSB. GASTROESOPHAGEAL JUNCTION, BIOPSY: - SQUAMOCOLUMNAR JUNCTIONAL MUCOSA WITH MARKED CHRONIC INACTIVE CARDIOESOPHAGITIS - NEGATIVE FOR INTESTINAL METAPLASIA AND DYSPLASIA - ESOPHAGEAL SQUAMOUS MUCOSA WITH REFLUX- ASSOCIATED CHANGESC. TRANSVERSE COLON POLYP, FORCEPS BIOPSY: - COLONIC MUCOSA WITH LYMPHOID AGGREGATE AND FOCAL SURFACE HYPERPLASTIC CHANGE - NEGATIVE FOR DYSPLASIA SJ/pl Signing Pathologist Direct Phone Line: [phone] signed by Dora Coulter MD on 05/28/2019 at 8:09 AMEndoscopic report reviewed. [id number]; [id number] diagnosis: Screen for colon cancer, gastroesophageal reflux disease without esophagitis, epigastric abdominal pain A. Received in formalin labeled with the patient's name, accession number and "gastric biopsy" are four ruggiero-pink tissue fragments measur ing up to 0.3 cm in greatest dimension which are filtered and submitted in toto in A1. B. Received in formalin labeled with the patient's name, accession number and "GE junction" are four ruggiero-pink tissue fragments measuring up to 0.2 cm in greatest dimension which are filtered and submitted in toto in B1. C. Received in formalin labeled with the patient's name, accession number and "transverse colon polyp" are three ruggiero-pink tissue fragments measuring up to 0.2 cm in greatest dimension which are filtered and submitted in toto in C1. PA/pl Performed The interpretation of this case included the use of immunohistochemistry or special stains.Control Slides Examined: In-house known positive controls were evaluated along with the test tissue. These control slides run alongside of the patients sample show appropriate staining. Internal positive and negative controls when available are evaluated Immunohistochemistry technical testing was performed at [facility] where it was developed and its performance characteristics were determined. It has not been cleared or approved by the U.S. Food and Drug Administration. The FDA has determined that such clearance or approval is not necessary. The test is used for clinical purposes. It should not be regarded as investigational or for research. This laboratory is certified under the Clinical Laboratory Improvement Amendments of 1988 (CLIA-88) as qualified to perform high complexity clinical laboratory testing.
--- NOTE | 2019-09-23 17:28 | Diagnostic Imaging Report ---
EXAM: Unilateral Lower Extremity Duplex Ultrasound INDICATION: ^pain/swelling right leg ^[id number] ^[id number] COMPARISON: None TECHNIQUE: Borjas scale, color Doppler and spectral waveform analysis of the unilateral lower extremity deep venous system was performed. FINDINGS: Common Femoral: Fully compressible with normal spontaneous waveforms. Proximal Greater Saphenous: Fully compressible. Femoral: Fully compressible with normal spontaneous waveforms. Normal response to augmentation. Proximal Deep Femoral: Normal spontaneous waveforms. Popliteal: Fully compressible with normal spontaneous waveforms. IMPRESSION: No evidence of deep venous thrombosis of the right lower extremity. Signed by: Jerry Martínez MD on 09/23/2019 5:25 PM
== END 2019-09-23 17:50 | disposition home or self-care (01) ==
LOC: FSED 14:24
DX: M25.561 Pain in right knee (principal); M79.661 Pain in right lower leg; I10 Essential (primary) hypertension; E78.5 Hyperlipidemia, unspecified; K21.9 Gastro-esophageal reflux disease without esophagitis; Z87.442 Personal history of urinary calculi
CPT/HCPCS: 80048; 85025; 85610; 93971; 99283